=== PATIENT | female | born 1955 | race Caucasian/White ===

== ENCOUNTER 2016-03-25 09:59 | Emergency (ER) | payer BC ==
[~2016-03-25] VITALS: Ht 162.6 cm; Wt 65.4 kg
[2016-03-25 12:41] LABS: EOSINOPHIL (%) 2.6 % (0-5); EOSINOPHIL COUNT 0.2 K/uL (0-0.3); IMMATURE GRANULOCYTE (%) 0.1 % (0.0-0.7); IMMATURE GRANULOCYTE COUNT 0.1 K/uL; LYMPHOCYTE COUNT 2.8 K/uL (1.0-2.8); MCH 27.7 PG (29.0-34.0); MCHC 34.8 G/DL (30.0-36.0); MCV 79.5 FL (83-99); MEAN PLAT.VOLUME 9.8 uM^3 (9.5-12.4); MONOCYTE (%) 6.2 % (3-12); MONOCYTE COUNT 0.5 K/uL (0-0.8); NEUTROPHIL (%) 55.6 % (45-76); NEUTROPHIL COUNT 4.4 K/uL (1.8-6.4); PLATELET COUNT 227 K/uL (156-360); RBC DIS.WIDTH-CV 13.2 % (11.8-14.6); RBC DIS.WIDTH-SD 37.8 % (39-53); RED BLOOD COUNT 5.28 M/uL (3.80-5.20)
[2016-03-25 12:50] LABS: CHLORIDE 107 mEq/L (99-109); SODIUM 140 mEq/L (136-147)
[2016-03-25 12:52] LABS: GLUCOSE 105 mg/dL (70-99)
[2016-03-25 12:53] LABS: ANION GAP 11 MEQ/L (2-14)
[2016-03-25 12:54] LABS: TOTAL BILIRUBIN 0.4 mg/dL (0.0-1.0)
[2016-03-25 12:56] LABS: ALKALINE PHOSPHATASE 51 IU/L (3-129); GFR ESTIMATE (CALCULATED) > 59 mL/min/
[2016-03-25 12:57] LABS: UREA NITROGEN (BUN) 10 mg/dL (9-23)
[2016-03-25] MEDS ORDERED: AUGMENTIN875 MG PO (14:59)
[2016-03-25] MEDS ORDERED: ROBITUSSIN AC,T10 ML PO (14:59)
[2016-03-25] MEDS ORDERED: ZYRTEC10 M3 PO (14:59)
[2016-03-25] MEDS ORDERED: MECLIZINE HCL25 MG PO (14:59)
[2016-03-25] MEDS ORDERED: MEDROL DOSEPAK4 MG PO (14:59)
[2016-03-25 16:10] VITALS: BP 146/84
== END 2016-03-25 16:15 | disposition home or self-care (01) ==
LOC: EME 09:59
PROVIDERS: Emergency Medicine
DX: J32.9 Chronic sinusitis, unspecified (principal); J40 Bronchitis, not specified as acute or chronic; F17.200 Nicotine dependence, unspecified, uncomplicated
CPT/HCPCS: 70486; 71020; 80053; 83605; 85025; 99281; 99284; J0696; J1100; J7030; J7050